=== PATIENT | female | born 1970 | race Hispanic/Latino ===

== ENCOUNTER 2019-10-31 10:19 | Emergency (ER) | payer MEDICARE, MEDICAID, SELFPAY ==
--- NOTE | ~2019-10-31 | XR_ITS ---
EXAMINATION: XR chest 2V DATE: 10/31/2019 11:12 INDICATION: Mid chest pain TECHNIQUE: PA and lateral views of the chest are obtained. COMPARISON: 03/27/2019 FINDINGS: There are minimal airspace opacities of the lung bases. There is no pleural effusion or pne umothorax. The heart size is normal. There are changes of cardiac valve surgery. A dual-lead cardiac pacemaker of the right chest wall ends with leads in expected locations. There is mild thoracic spond ylosis. IMPRESSION: 1. Minimal airspace opacities of the lung bases, consistent with atelectasis versus pneumonia versus pulmonary edema. Reviewed, dictated and finalized at location A. IMPRESSION: 1. Minimal airspace opacities of the lung bases, consistent with atelectasis ve rsus pneumonia versus pulmonary edema.
[2019-10-31 10:22] VITALS: BP 197/103; PULSE 105; RESP 20; TEMP 37.1; O2SAT 99
--- NOTE | 2019-10-31 10:22 | ECG_ITS ---
Measurements Intervals [place] Rate: 111 P: 45 FL: 241 QRS: -27 QRSD: 178 T: 123 QT: 422 QTc: 574 Interpretive Statements ATRIAL SENSE- ELECTRONIC VENTRICULAR PACEMAKER UNDERLYING SINUS TACHYCARDIA BASELINE WANDER- I, II, AVR, AVL, AVF, V5 NO FURTHER INTERPRETATION IS POSSIBLE ABNORMAL ECG Electronically Signed On 10-31-2019 16:40:26 CDT by Jaun Ricks D.O.
[2019-10-31 10:42] LABS: Basophils Absolute Auto 0.1 K/mm3 (0.0-0.1); Basophils Percent Auto 0.9 % (0.2-1.2); Eosinophils Absolute Auto 0.1 K/mm3 (0-0.3); Hemoglobin 16.4 g/dL (12.0-15.0); Immature Granulocyte Absolute 0.05 K/mm3 (0.00-0.031); Immature Granulocyte Percent A 0.5 % (0-0.5); Lymphocytes Absolute Auto 2.69 K/mm3 (0.9-3.2); Lymphocytes Percent Auto 25.4 % (18.3-44.2); Mean Corpuscular HGB Conc 33.5 g/dl (32-36); Mean Corpuscular Hemoglobin 30.4 pg (26-34); Mean Corpuscular Volume 90.9 fl (80-100); Monocytes Absolute Auto 0.7 K/mm3 (0.1-0.6); Monocytes Percent Auto 6.5 % (2.6-8.5); Neutrophils Percent Auto 65.7 % (45.5-73.1); Platelet Count Result 295 k/mm3 (150-375); Red Blood Count 5.39 M/mm3 (4.2-5.4); Red Cell Distribution Width 13.7 % (11.5-14.5); White Blood Count 10.6 K/mm3 (4.5-10.0)
[2019-10-31 10:52] LABS: INR 0.8; Prothrombin Time 11.2 Seconds (11.1-14.7)
[2019-10-31 10:53] LABS: Partial Thromboplastin Time 28.4 SECONDS (22.3-36.8)
[2019-10-31 10:56] LABS: Blood Urea Nitrogen 16 mg/dL (7-17); Calcium 9.3 mg/dL (8.4-10.2); Carbon Dioxide 19 mmol/L (22-30); Chloride 105 mmol/L (98-107); Estimated CRCL calculation 51 ml/min; Estimated Glomerular Filt Rate 53; Glucose 199 mg/dL (65-105); Potassium 3.8 mmol/L (3.4-5.0); Sodium 137 mmol/L (137-145)
[2019-10-31 11:08] LABS: Troponin I < 0.012 ng/mL (0.000-0.034)
--- NOTE | 2019-10-31 11:29 | ED.CHESTPAIN ---
HPI - Chest Pain General Chief Complaint: Chest Pain Stated Complaint: CHEST PAIN Time Seen by Provider: 10/31/19 10:30 History of Present Illness HPI narrative: Patient presents for 1 week of cough and 3 days of chest pain. She has had pig valve replacement 2 valves in her heart, and still has chest wall pain from the surgery. She continues to smoke and has had light brown sputum in the last week. She has had no documented fever but she has had shortness of breath chills and sweats. Her appetite is good she has had no vomiting she had a little bit of diarrhea in the last couple days. She says that the chest pain is a 4 out of 10 and radiates straight to the back. She also has known reflux. MD complaint: chest pain Onset (ago): day(s) Timing of current episode: constant Prior episodes: Yes Onset: during rest Related Data Home Medications Medication Instructions Recorded Confirmed albuterol sulfate [Ventolin HFA] 2 puff INHALATION QID PRN 10/31/19 amlodipine 10 mg PO DAILY 10/31/19 atorvastatin 20 mg PO DAILY 10/31/19 carvedilol 25 mg PO BID 10/31/19 clopidogrel 75 mg PO DAILY 10/31/19 fenofibrate nanocrystallized 145 mg PO DAILY 10/31/19 glimepiride 2 mg PO BID 10/31/19 lisinopril 40 mg PO DAILY 10/31/19 metformin 500 mg PO DAILY 10/31/19 omeprazole 40 mg PO BID 10/31/19 Allergies Allergy/AdvReac Type Severity Reaction Status Date / Time aspirin Allergy Severe N/V/D Verified 10/31/19 10:32 ketorolac Allergy Severe V/N/D Verified 10/31/19 10:32 morphine Allergy Severe N/V/D Verified 10/31/19 10:32 naproxen Allergy Intermediate N/V/D Verified 10/31/19 10:32 citalopram Allergy Unknown Unknown Verified 10/31/19 10:32 Iodine and Iodide Containing Allergy Unknown Unknown Verified 10/31/19 10:32 Produc tramadol Allergy Unknown Unknown Verified 10/31/19 10:32 polyethylene glycol AdvReac Intermediate NAUSEA Verified 10/31/19 10:32 polyethylene glycol 3350 AdvReac Intermediate NAUSEA Verified 10/31/19 10:32 potassium chloride AdvReac Intermediate NAUSEA Verified 10/31/19 10:32 sodium AdvReac Intermediate NAUSEA Verified 10/31/19 10:32 sodium bicarbonate AdvReac Intermediate NAUSEA Verified 10/31/19 10:32 sodium sulfate AdvReac Intermediate NAUSEA Verified 10/31/19 10:32 Contrast Media Allergy Intermediate SOB Uncoded 10/31/19 10:32 PROPOXYPHENE NAPSYLATE AdvReac Mild N/V Uncoded 10/31/19 10:32 Review of Systems Review of Systems: Narrative: CONSTITUTIONAL: Denies fever, but she has had chills, and sweats. EYES: Denies visual changes, redness, or discharge. ENT: Denies rhinorrhea, congestion, sore throat, or otalgia. CARDIOVASCULAR: Denies palpitations, or edema. RESPIRATORY: She has cough with sputum production, and shortness of breath.. GASTROINTESTINAL: Denies abdominal pain, nausea, vomiting GENITOURINARY: Denies dysuria or hematuria. SKIN: Denies rash or itching. MUSCULOSKELETAL: Denies back pain, joint pain, or myalgia. NEUROLOGIC: Denies headache, numbness, or weakness. PSYCHIATRIC: Denies anxiety or depression. All systems reviewed & are unremarkable except as noted in HPI and below PMFSH Past Medical History Medical History Endocarditis Surgical History Surgical History History of heart valve replacement Social History Social History (Updated 10/31/19 @ 11:34 by Maritza Galvan MD) Smoking status: Heavy tobacco smoker Alcohol intake: never Substance use: current Substance use type: marijuana Exam Narrative: Exam Narrative: GENERAL: Well-appearing, well-nourished, and in no acute distress. Smells strongly of cigarette smoke. HEAD: Normocephalic, atraumatic. EYES: PERRLA and EOMI. ENT: Nares clear, no rhinorrhea or epistaxis. Mucous membranes moist. NECK: Supple. CHEST: Clear to auscultation. No respiratory distress. Tenderness on the chest wall. HEART: Regular rate and rhythm.
[2019-10-31] MEDS: SODIUM CHLORIDE 0.9% IV 1,000 ML 999 ML IV CONT (11:47)
[2019-10-31] MEDS: FAMOTIDINE 20 MG/2 ML VIAL IV PUSH (11:48)
[2019-10-31] MEDS: BELLADONNA ALK/PHENOB ELIX 10 ML, MAG HYDROX/ALUMINUM HYD/SIMETH 30 ML, LIDOCAINE HCL 2... PO (11:48)
[2019-10-31 12:01] LABS: Lipase 203 U/L (23-300)
[2019-10-31 12:12] LABS: NT Pro B Type Natriuretic Pept 747 PG/ML (5-100)
[2019-10-31] MEDS: FUROSEMIDE INJ 40 MG/4 ML VIAL IV PUSH (12:45)
[2019-10-31 12:46] VITALS: BP 192/100; PULSE 75; RESP 20; O2SAT 97
[2019-10-31 13:28] VITALS: BP 187/90; PULSE 78; RESP 20; O2SAT 98
== END 2019-10-31 13:33 | disposition home or self-care (01) ==
PROVIDERS: Emergency Provider Emergency Medicine
DX: I50.9 Heart failure, unspecified (principal); J18.9 Pneumonia, unspecified organism; R07.89 Other chest pain; F17.200 Nicotine dependence, unspecified, uncomplicated; Z20.828 Contact with and (suspected) exposure to other viral communicable diseases; Z95.3 Presence of xenogenic heart valve
CPT/HCPCS: 36415; 71046; 80048; 83605; 83690; 83880; 84484; 85025; 85610; 85730; 87040; 87635; 87804; 93005; 96361; 96374; 96375; 99284; A9270; C9803; J1940; J7030; U0003

== ENCOUNTER 2020-05-30 13:10 | Emergency (ER) | payer MEDICARE, MEDICAID, SELFPAY ==
--- NOTE | ~2020-05-30 | CT_ITS ---
EXAMINATION: CT brain wo [facility] EXAM DATE: 05/30/2020 16:12 INDICATION: Left-sided hemiparesis. TECHNIQUE: Spiral CT of the head was performed without contrast. Axial, coronal and sagittal images were reviewed. The dose-length product (DLP) for this examination was 605.33 mGy-cm. The exposure w as tailored according to patient size, and iterative reconstruction (ASIR) was used as additional dos e reduction technique. There is no prior study for comparison. FINDINGS: There are bilateral basal ganglia, caudate head, thalamic lacunar infarctions which are old . There is no acute intraparenchymal hemorrhage. No evidence of intraparenchymal brain mass lesion. No evidence of acute infarction. Please note that initial head CT has limited sensitivity for small or acute infarctions. There is mild periventricular and subcortical hypodensity, nonspecific but pro bably related to small vessel ischemic disease. There is mild prominence of the sulci and ventricle s related to cerebral atrophy. There is intracranial carotid arteriosclerosis. There are no extra- axial collections. There is no mass effect or midline shift. The orbits are unremarkable. Soft tis howard is unremarkable. The visualized sinuses and mastoid air cells are well aerated. IMPRESSION: 1. Old bilateral lacunar infarctions. 2. Chronic age related findings. Reviewed, dictated and finalized at location A. S MILL OPERATOR
[2020-05-30 13:14] VITALS: BP 230/138; PULSE 106; RESP 17; TEMP 36.4; O2SAT 98
[2020-05-30 14:29] VITALS: BP 205/143; PULSE 88; RESP 18; O2SAT 97
--- NOTE | 2020-05-30 14:54 | ED.WEAKNESS ---
HPI - Weakness General Chief complaint: Extremity Injury, Upper Stated complaint: Muscle pain in left arm, weak left arm Time Seen by Provider: 05/30/20 13:24 Source: patient Mode of arrival: ambulatory Limitations: no limitations History of Present Illness HPI Narrative: 49-year-old female History of hypertension type 2 diabetes and heart surgery for what she describes as a hole but may have been a valve Note that her initial examination in the ED was delayed because she was apparently assigned to a non-ED provider and did not show up on anybodies list of patients waiting to be seen That said she is presenting complaining of pain in her left armpit for several days She does not report having ever injured herself She does note that the symptoms are a lot worse if she tries to reach behind her back to scratch it or anything like that Of greater concern is she says that yesterday she woke up with left leg weakness and when she tried to walk she fell down She apparently did not seek medical attention at that time due to Covid phobia Also she notes that she did not take any of her medicines today including her blood pressure medicine because she felt a little nauseated She does not report a headache and she does not report any chest pain Related Data Home Medications Medication Instructions Recorded Confirmed albuterol sulfate [Ventolin HFA] 2 puff INHALATION QID PRN 10/31/19 amlodipine 10 mg PO DAILY 10/31/19 atorvastatin 20 mg PO DAILY 10/31/19 carvedilol 25 mg PO BID 10/31/19 clopidogrel 75 mg PO DAILY 10/31/19 fenofibrate nanocrystallized 145 mg PO DAILY 10/31/19 glimepiride 2 mg PO BID 10/31/19 lisinopril 40 mg PO DAILY 10/31/19 metformin 500 mg PO DAILY 10/31/19 omeprazole 40 mg PO BID 10/31/19 dicyclomine 10 mg PO BID 05/30/20 05/30/20 Allergies Allergy/AdvReac Type Severity Reaction Status Date / Time aspirin Allergy Severe N/V/D Verified 05/30/20 13:17 ketorolac Allergy Severe V/N/D Verified 05/30/20 13:17 morphine Allergy Severe N/V/D Verified 05/30/20 13:17 naproxen Allergy Intermediate N/V/D Verified 05/30/20 13:17 citalopram Allergy Unknown Unknown Verified 05/30/20 13:17 Iodine and Iodide Containing Allergy Unknown Anaphylactic Verified 05/30/20 15:51 Produc Shock tramadol Allergy Unknown Unknown Verified 05/30/20 13:17 polyethylene glycol AdvReac Intermediate NAUSEA Verified 05/30/20 13:17 polyethylene glycol 3350 AdvReac Intermediate NAUSEA Verified 05/30/20 13:17 potassium chloride AdvReac Intermediate NAUSEA Verified 05/30/20 13:17 sodium AdvReac Intermediate NAUSEA Verified 05/30/20 13:17 sodium bicarbonate AdvReac Intermediate NAUSEA Verified 05/30/20 13:17 sodium sulfate AdvReac Intermediate NAUSEA Verified 05/30/20 13:17 Contrast Media Allergy Intermediate SOB Uncoded 10/31/19 10:32 PROPOXYPHENE NAPSYLATE AdvReac Mild N/V Uncoded 10/31/19 10:32 Review of Systems Constitutional: Constitutional: Denies chills, Reports fatigue, Denies fever(s) and Reports weakness Eyes: Eyes: Denies no additional eye complaints and Denies change in vision ENT: Denies dysphagia, Denies epistaxis and Denies sore throat Cardiovascular: Cardiovascular: Reports chest pain and Denies rapid heart rate Respiratory: Respiratory: Denies cough and Denies dyspnea Gastrointestinal: Gastrointestinal: Denies diarrhea and Denies vomiting Musculoskeletal: Musculoskeletal: Reports myalgias and Reports arthralgias Neurologic: Denies vertigo, Denies syncope, Reports focal weakness and Reports weakness PMFSH Past Medical History Medical History (Updated 05/30/20 @ 17:12 by William Pop MD) Endocarditis Surgical History Surgical History History of heart valve replacement Social History Social History (Updated 10/31/19 @ 11:34 by Maritza Galvan MD) Smoking status: Heavy tobacco smoker Alcohol intake: never Substance use: current Substance use ty
--- NOTE | 2020-05-30 15:03 | ECG_ITS ---
Measurements Intervals [place] Rate: 78 P: 59 [place]: 104 QRS: 47 QRSD: 142 T: 15 QT: 441 QTc: 503 Interpretive Statements SINUS RHYTHM WITH SHORT [place] INTERVAL POSSIBLE LEFT ATRIAL ENLARGEMENT RIGHT BUNDLE BRANCH BLOCK BASELINE ARTIFACT- I, II, III, AVR ABNORMAL ECG Electronically Signed On 05-30-2020 16:01:43 LINUX SYSTEM ENGINEER by Jaun Ricks D.O.
[2020-05-30] MEDS: amLODIPine BESYLATE 5 MG TABLET 10 MG PO (15:09)
[2020-05-30] MEDS: lisinopriL 20 MG TABLET PO (15:09)
[2020-05-30 15:27] VITALS: PULSE 86
[2020-05-30] MEDS: carvediloL 25 MG TABLET PO (15:27)
--- NOTE | 2020-05-30 15:29 | PC.NURSE ---
Patient declines being admitted to the hospital at this time.
[2020-05-30 15:47] VITALS: BP 171/134; PULSE 91; RESP 19; O2SAT 98
[2020-05-30 15:47] LABS: Glucose Point of Care 191 (65-105)
[2020-05-30 15:49] LABS: Basophils Absolute Auto 0.1 K/mm3 (0.0-0.1); Basophils Percent Auto 0.9 % (0.2-1.2); Eosinophils Absolute Auto 0.1 K/mm3 (0-0.3); Eosinophils Percent Auto 0.6 % (0-4.4); Hematocrit 49.8 % (37.0-47.0); Hemoglobin 16.8 g/dL (12.0-15.0); Immature Granulocyte Absolute 0.04 K/mm3 (0.00-0.031); Immature Granulocyte Percent A 0.4 % (0-0.5); Lymphocytes Absolute Auto 2.01 K/mm3 (0.9-3.2); Lymphocytes Percent Auto 19.8 % (18.3-44.2); Mean Corpuscular HGB Conc 33.7 g/dl (32-36); Mean Corpuscular Hemoglobin 30.7 pg (26-34); Mean Platelet Volume 8.6 fl (7.4-10.4); Monocytes Absolute Auto 0.6 K/mm3 (0.1-0.6); Monocytes Percent Auto 5.4 % (2.6-8.5); Neutrophils Absolute Auto 7.4 K/mm3 (1.3-6.7); Neutrophils Percent Auto 72.9 % (45.5-73.1); Platelet Count Result 265 k/mm3 (150-375); Red Blood Count 5.47 M/mm3 (4.2-5.4); Red Cell Distribution Width 13.9 % (11.5-14.5); White Blood Count 10.2 K/mm3 (4.5-10.0)
[2020-05-30] MEDS: ONDANSETRON INJ 4 MG/2 ML VIAL IV PUSH (15:50)
[2020-05-30 16:03] LABS: INR 0.9; Prothrombin Time 12.3 Seconds (11.1-14.7)
[2020-05-30 16:05] LABS: Alanine Aminotransferase 17 U/L (4-35); Albumin Level 4.5 g/dL (3.5-5.1); Alkaline Phosphatase 113 U/L (38-126); Anion Gap 10 mmol/L (8-16); Aspartate Amino Transferase 25 U/L (14-36); Bilirubin,Total 0.8 mg/dL (0.2-1.3); Blood Urea Nitrogen 17 mg/dL (7-17); Calcium 9.6 mg/dL (8.4-10.2); Carbon Dioxide 26 mmol/L (22-30); Chloride 103 mmol/L (98-107); Estimated CRCL calculation 50 ml/min; Estimated Glomerular Filt Rate 52; Glucose 183 mg/dL (65-105); Potassium 3.7 mmol/L (3.4-5.0); Sodium 139 mmol/L (137-145)
[2020-05-30] MEDS: ACETAMINOPHEN 500 MG TABLET 1000 MG PO (16:25)
[2020-05-30] MEDS: LABETALOL HCL INJ 100 MG/20 ML VIAL 20 MG IV PUSH (16:26)
[2020-05-30 17:25] VITALS: BP 226/106; PULSE 88; RESP 19; O2SAT 98
== END 2020-05-30 17:26 | disposition left against medical advice (07) ==
PROVIDERS: Emergency Provider Emergency Medicine
DX: I63.9 Cerebral infarction, unspecified (principal); I10 Essential (primary) hypertension; E11.9 Type 2 diabetes mellitus without complications; Z79.84 Long term (current) use of oral hypoglycemic drugs; Z95.2 Presence of prosthetic heart valve; F17.200 Nicotine dependence, unspecified, uncomplicated; I45.10 Unspecified right bundle-branch block; R94.31 Abnormal electrocardiogram [ECG] [EKG]
CPT/HCPCS: 36415; 70450; 80053; 82948; 85025; 85610; 93005; 96374; 96375; 99284; A9270; J2405

== ENCOUNTER 2021-09-14 10:38 | Emergency (ER) | payer OTHER, SELFPAY ==
--- NOTE | ~2021-09-14 | CT_ITS ---
EXAMINATION: CT abdomen pelvis wo con DATE: 09/14/2021 11:22 INDICATION: Flank pain TECHNIQUE: Computed tomography (CT) of the abdomen and pelvis was performed without intravenous contr ast. Automated exposure control and iterative reconstruction technique were employed. Exam dose: 204 .93 mGy-cm total exam DLP. COMPARISON: 03/09/2017 CT abdomen pelvis FINDINGS: Status post sternotomy and mitral valve replacement. Right atrial and right ventricular leads. Heart size is within normal limits. No pericardial or pleur al effusion. The lung bases are clear of infiltrate or consolidation. The liver, gallbladder, spleen, pancreas, bile ducts and pancreatic duct are unremarkable. Normal morphology of the adrenal glands. Multiple bilateral renal calculi measuring up to 5 mm on the right, 3 mm on the left. No ureteral khalif culus or hydroureteronephrosis. There is calcification but no aneurysm of the abdominal aorta and iliac and femoral arteries. No intr aperitoneal or retroperitoneal or pelvic mass lesion or adenopathy or ascites. Normal appendix. There are diverticula throughout the left and right colon; no CT evidence of diverti culitis. No bowel obstruction or intraperitoneal free air. The uterus, adnexal areas and urinary bladder are unremarkable. Included skeletal structures are unremarkable. IMPRESSION: Bilateral nonobstructive nephrolithiasis Extensive diverticulosis of left and right colon; no CT evidence of diverticulitis Status post mitral valve replacement Right atrial and ventricular pacemaker leads Reviewed, dictated and finalized at Location [facility]. Reviewed, dictated and finalized at location A. IMPRESSION: Bilateral nonobstructive nephrolithiasis Extensive diverticulosis of left and right colon; no CT evidence of diverticuli tis Status post mitral valve replacement Right atrial and ventricular pacemaker leads
[2021-09-14 11:09] VITALS: BP 172/85; PULSE 92; RESP 20; TEMP 36.7; O2SAT 99
--- NOTE | 2021-09-14 11:15 | PC.NURSE ---
Pt to CT scan at this time.
--- NOTE | 2021-09-14 11:15 | ED.BACK ---
HPI - Back Pain/Injury General Chief Complaint: Back Pain/Injury Stated Complaint: flank pain Time Seen by Provider: 09/14/21 11:04 History of Present Illness HPI Narrative: 50-year-old female presents the emergency room with chronic left flank pain for 4 to 5 months. Associated with nausea and vomiting. Patient also complaining of dysuria and decreased urine flow for 1 month. Patient states she has a history of kidney stones, in the past requiring lithotripsy. Patient denies fever denies abdominal pain. Related Data Home Medications Medication Instructions Recorded Confirmed albuterol sulfate [Ventolin HFA] 2 puff INHALATION QID PRN 10/31/19 amlodipine 10 mg PO DAILY 10/31/19 atorvastatin 20 mg PO DAILY 10/31/19 carvedilol 25 mg PO BID 10/31/19 clopidogrel 75 mg PO DAILY 10/31/19 fenofibrate nanocrystallized 145 mg PO DAILY 10/31/19 glimepiride 2 mg PO BID 10/31/19 lisinopril 40 mg PO DAILY 10/31/19 metformin 500 mg PO DAILY 10/31/19 omeprazole 40 mg PO BID 10/31/19 dicyclomine 10 mg PO BID 05/30/20 05/30/20 Allergies Allergy/AdvReac Type Severity Reaction Status Date / Time aspirin Allergy Severe N/V/D Verified 09/14/21 11:14 ketorolac Allergy Severe V/N/D Verified 09/14/21 11:14 morphine Allergy Severe N/V/D Verified 09/14/21 11:14 naproxen Allergy Intermediate N/V/D Verified 09/14/21 11:14 citalopram Allergy Unknown Unknown Verified 09/14/21 11:14 Iodine and Iodide Containing Allergy Unknown Anaphylactic Verified 09/14/21 11:14 Produc Shock tramadol Allergy Unknown Unknown Verified 09/14/21 11:14 polyethylene glycol AdvReac Intermediate NAUSEA Verified 05/30/20 13:17 polyethylene glycol 3350 AdvReac Intermediate NAUSEA Verified 09/14/21 11:14 potassium chloride AdvReac Intermediate NAUSEA Verified 09/14/21 11:14 sodium AdvReac Intermediate NAUSEA Verified 09/14/21 11:14 sodium bicarbonate AdvReac Intermediate NAUSEA Verified 09/14/21 11:14 sodium sulfate AdvReac Intermediate NAUSEA Verified 09/14/21 11:14 Contrast Media Allergy Intermediate SOB Uncoded 09/14/21 11:14 PROPOXYPHENE NAPSYLATE AdvReac Mild N/V Uncoded 09/14/21 11:14 Review of Systems Review of Systems: CONSTITUTIONAL: Denies fever, chills, or sweats. EYES: Denies visual changes, redness, or discharge. ENT: Denies rhinorrhea, congestion, sore throat, or otalgia. CARDIOVASCULAR: Denies chest pain, palpitations, or edema. RESPIRATORY: Denies cough or dyspnea. GASTROINTESTINAL: Reports bilateral flank pain, nausea GENITOURINARY: Reports dysuria SKIN: Denies rash or itching. MUSCULOSKELETAL: Denies back pain, joint pain, or myalgia. NEUROLOGIC: Denies headache, numbness, dizziness, or weakness. PSYCHIATRIC: Denies anxiety or depression. [facility] Past Medical History Medical History (Updated 09/14/21 @ 12:47 by Gibson Ponce APRN) Endocarditis Surgical History Surgical History History of heart valve replacement Social History Social History Smoking status: Heavy tobacco smoker Alcohol intake: never Substance use: current Substance use type: marijuana Gender identity (if verbalized by the patient): Female Exam Narrative: GENERAL: Well-appearing, well-nourished, and in no acute distress. HEAD: Normocephalic, atraumatic. EYES: PERRLA and EOMI. ENT: Nares clear, no rhinorrhea or epistaxis. Mucous membranes moist. CHEST: Clear to auscultation. No respiratory distress. No wheezes rales or rhonchi HEART: Regular rate and rhythm. No murmur heard. Normal peripheral pulses. ABDOMEN: Soft, nontender, nondistended, normal active bowel sounds. Bilateral CVA tenderness left greater than right, suprapubic tenderness EXTREMITIES: Normal range of motion. No edema. SKIN: Warm, dry, no rash. NEURO: No focal deficits. Alert and oriented x3. PSYCH: Normal mood and affect. Course Vital Signs Vital signs: Vital Signs Te
[2021-09-14] MEDS: SODIUM CHLORIDE 0.9% IV 1,000 ML 999 ML IV CONT (11:23)
[2021-09-14] MEDS: ONDANSETRON INJ 4 MG/2 ML VIAL IV PUSH (11:24)
[2021-09-14 11:26] LABS: Basophils Absolute Auto 0.1 K/mm3 (0.0-0.1); Basophils Percent Auto 0.8 % (0.2-1.2); Eosinophils Percent Auto 0.5 % (0-4.4); Hematocrit 45.2 % (37.0-47.0); Hemoglobin 14.5 g/dL (12.0-15.0); Immature Granulocyte Absolute 0.03 K/mm3 (0.00-0.031); Immature Granulocyte Percent A 0.4 % (0-0.5); Lymphocytes Absolute Auto 1.46 K/mm3 (0.9-3.2); Lymphocytes Percent Auto 17.3 % (18.3-44.2); Mean Corpuscular HGB Conc 32.1 g/dl (32-36); Mean Corpuscular Hemoglobin 29.4 pg (26-34); Mean Corpuscular Volume 91.5 fl (80-100); Mean Platelet Volume 8.8 fl (7.4-10.4); Monocytes Absolute Auto 0.5 K/mm3 (0.1-0.6); Neutrophils Absolute Auto 6.4 K/mm3 (1.3-6.7); Platelet Count Result 274 k/mm3 (150-375); Red Blood Count 4.94 M/mm3 (4.2-5.4); Red Cell Distribution Width 14.2 % (11.5-14.5); White Blood Count 8.5 K/mm3 (4.5-10.0)
[2021-09-14 11:31] LABS: Appearance Urine Clear (Clear); Bilirubin Urine Negative (Negative); Blood Urine Trace-lysed (Negative); Color Urine Yellow (Yellow); Glucose Urine UA Negative (Negative); Ketones Urine Negative (Negative); Leukocyte Esterase Ur Negative LEU/UL (Negative); Nitrate Urine Negative (Negative); Protein Urine 2+ mg/dL (Negative); Specific Grav Ur 1.025 (1.001-1.035); Urobilinogen Urine 0.2 mg/dL (<2.0)
[2021-09-14 11:32] LABS: Add Urine Microscopic? YES
[2021-09-14 11:35] LABS: Alanine Aminotransferase 20 U/L (4-35); Albumin Level 4.8 g/dL (3.5-5.1); Alkaline Phosphatase 93 U/L (38-126); Anion Gap 9 mmol/L (8-16); Aspartate Amino Transferase 28 U/L (14-36); Bilirubin,Total 0.6 mg/dL (0.2-1.3); Blood Urea Nitrogen 28 mg/dL (7-17); Calcium 9.2 mg/dL (8.4-10.2); Carbon Dioxide 22 mmol/L (22-30); Chloride 105 mmol/L (98-107); Estimated CRCL calculation 49 ml/min; Estimated Glomerular Filt Rate 52; Glucose 239 mg/dL (65-110); Lipase 685 U/L (23-300); Potassium 4.6 mmol/L (3.4-5.0); Sodium 136 mmol/L (137-145)
[2021-09-14 11:40] LABS: Mucus Urine Rare /lpf; Squamous Epithelial Cell Urine Rare /hpf (Few); WBC Urine 0-3 /hpf
[2021-09-14 12:38] LABS: Hemoglobin A1C 7.5 % (<5.7)
[2021-09-14 13:00] VITALS: BP 173/80; PULSE 93; RESP 20; O2SAT 99
== END 2021-09-14 13:01 | disposition home or self-care (01) ==
PROVIDERS: Emergency Medicine; Emergency Provider Nurse Practitioner Family
DX: N28.9 Disorder of kidney and ureter, unspecified (principal); E11.65 Type 2 diabetes mellitus with hyperglycemia; M54.50 Low back pain, unspecified; I38 Endocarditis, valve unspecified; K57.90 Diverticulosis of intestine, part unspecified, without perforation or abscess without bleeding; N20.0 Calculus of kidney; Z95.0 Presence of cardiac pacemaker; Z95.2 Presence of prosthetic heart valve; F17.200 Nicotine dependence, unspecified, uncomplicated; Z87.442 Personal history of urinary calculi; Z79.84 Long term (current) use of oral hypoglycemic drugs
CPT/HCPCS: 36415; 74176; 80053; 81001; 83036; 83690; 85025; 96361; 96374; 99284; J2405; J7030

== ENCOUNTER 2022-08-27 11:41 | Outpatient (CLI) | payer MEDICARE, MEDICAID, SELFPAY ==
--- NOTE | ~2022-08-27 | US_ITS ---
EXAMINATION: US renal BI DATE: 08/27/2022 12:40 INDICATION: N18.31 - Chronic kidney disease, stage 3a TECHNIQUE: Multiple grayscale and Doppler ultrasound images of the kidneys were obtained. COMPARISON: CT abdomen pelvis 09/14/2021 FINDINGS: The right kidney measures 10.3 x 3.9 x 4.4 cm. The left kidney measures 9.6 x 4.3 x 3.6 cm. The kidne ys demonstrate normal parenchymal echogenicity. Multiple bilateral echogenic shadowing foci in the ki dneys measuring 9 mm on the right and 7 mm on the left. There is no hydronephrosis. The bladder is no rmal. IMPRESSION: Bilateral nephrolithiasis, otherwise unremarkable renal sonogram findings. Reviewed, dictated and finalized at location K.
[2022-08-27 13:58] LABS: Creatinine Urine 15.3 mg/dL; Total Protein Urine Random 58 mg/dL; Ur Ttl Prot Creatinine Ratio 3.79 mg/mg (0-0.20)
[2022-08-27 14:05] LABS: Albumin Level 4.9 g/dL (3.5-5.1); Anion Gap 7 mmol/L (8-16); Blood Urea Nitrogen 18 mg/dL (7-17); Calcium 9.3 mg/dL (8.4-10.2); Carbon Dioxide 26 mmol/L (22-30); Chloride 104 mmol/L (98-107); Estimated Glomerular Filt Rate 52; Glucose 111 mg/dL (65-110); Phosphorus 4.1 mg/dL (2.5-4.5); Potassium 4.2 mmol/L (3.4-5.0); Sodium 137 mmol/L (137-145)
[2022-08-27 14:20] LABS: Complement C3 134 mg/dL (88-165)
[2022-08-27 14:23] LABS: Eosinophil Urine None Seen % (None Seen); Urine Eos QC 2nd Tech Confirmed
[2022-08-29 20:20] LABS: ANCA Screen Negative (Negative); Anti Glomerular Basement Memb <1.0 AI (<1.0)
[2022-08-30 12:42] LABS: Albumin 4.5 g/dL (3.8-4.8); Alpha 1 Globulin 0.4 g/dL (0.2-0.3); Alpha 2 Globulin 1.1 g/dL (0.5-0.9); Beta 1 Globulin 0.5 g/dL (0.4-0.6); Gamma Globulin 0.8 g/dL (0.8-1.7); Protein, Total 7.6 g/dL (6.1-8.1)
[2022-08-30 14:07] LABS: Anti Nuclear Antibody Pattern Nuclear, Speckled; Anti Nuclear Antibody Titer 1:40 (Negative)
[2022-09-05 08:29] LABS: Creatinine, Random Urine 18 mg/dL (20-275); Total Protein/Creatinine Ratio 2833 mg/g creat (24-184)
== END 2022-08-27 11:42 | disposition home or self-care (01) ==
PROVIDERS: Visit Provider Internal Medicine Nephrology
DX: N18.31 Chronic kidney disease, stage 3a (principal); N20.0 Calculus of kidney
CPT/HCPCS: 36415; 76775; 80069; 82570; 83520; 84155; 84156; 84165; 84166; 85999; 86036; 86038; 86039; 86160; 86225

== ENCOUNTER 2022-12-14 11:27 | Outpatient (CLI) | payer MEDICARE, MEDICAID, SELFPAY ==
[2022-12-14 12:15] LABS: Albumin Level 4.1 g/dL (3.5-5.1); Anion Gap 6 mmol/L (8-16); Blood Urea Nitrogen 20 mg/dL (7-17); Calcium 8.7 mg/dL (8.4-10.2); Carbon Dioxide 28 mmol/L (22-30); Chloride 107 mmol/L (98-107); Estimated Glomerular Filt Rate 28; Glucose 178 mg/dL (65-110); Phosphorus 3.8 mg/dL (2.5-4.5); Potassium 4.3 mmol/L (3.4-5.0); Sodium 141 mmol/L (137-145)
[2022-12-14 12:17] LABS: Creatinine Urine 151.1 mg/dL
[2022-12-14 12:18] LABS: Total Protein Urine Random > 200 mg/dL
== END 2022-12-14 11:28 | disposition home or self-care (01) ==
PROVIDERS: Visit Provider Internal Medicine Nephrology
DX: E11.22 Type 2 diabetes mellitus with diabetic chronic kidney disease (principal); N18.31 Chronic kidney disease, stage 3a; I12.9 Hypertensive chronic kidney disease with stage 1 through stage 4 chronic kidney disease, or unspecified chronic kidney disease
CPT/HCPCS: 36415; 80069; 82570; 84156

== ENCOUNTER 2023-03-18 11:35 | Emergency (ER) | payer MEDICARE, MEDICAID, SELFPAY ==
[2023-03-18 11:54] VITALS: BP 133/87; PULSE 78; RESP 16; TEMP 37.2; O2SAT 99
--- NOTE | 2023-03-18 14:02 | PC.NURSE ---
patient left without seeing a provider.
== END 2023-03-18 14:02 | disposition left against medical advice (07) ==
LOC: ANHED 14:08
DX: R10.9 Unspecified abdominal pain (principal)
CPT/HCPCS: 99199

== ENCOUNTER 2023-08-05 10:23 | Outpatient (CLI) | payer MEDICARE, MEDICAID, SELFPAY ==
[2023-08-05 11:11] LABS: Anion Gap 5 mmol/L (8-16); Blood Urea Nitrogen 21 mg/dL (7-17); Calcium 8.7 mg/dL (8.4-10.2); Carbon Dioxide 27 mmol/L (22-30); Chloride 104 mmol/L (98-107); Estimated Glomerular Filt Rate 47; Glucose 167 mg/dL (65-110); Phosphorus 4.7 mg/dL (2.5-4.5); Potassium 3.6 mmol/L (3.4-5.0); Sodium 136 mmol/L (137-145)
[2023-08-05 11:22] LABS: Parathyroid Intact 110.2 pg/mL (7.5-53.5)
[2023-08-05 11:45] LABS: Creatinine Urine 51.6 mg/dL
[2023-08-05 11:50] LABS: Vitamin D 25 Hydroxy 17.1 ng/mL
[2023-08-05 12:21] LABS: Total Protein Urine Random 398 mg/dL; Ur Ttl Prot Creatinine Ratio 7.71 mg/mg (0-0.20)
== END 2023-08-05 10:24 | disposition home or self-care (01) ==
PROVIDERS: PCP Emergency Medicine; Visit Provider Internal Medicine Nephrology
DX: E11.22 Type 2 diabetes mellitus with diabetic chronic kidney disease (principal); I12.9 Hypertensive chronic kidney disease with stage 1 through stage 4 chronic kidney disease, or unspecified chronic kidney disease; N18.31 Chronic kidney disease, stage 3a; E55.9 Vitamin D deficiency, unspecified; N20.0 Calculus of kidney; N25.81 Secondary hyperparathyroidism of renal origin
CPT/HCPCS: 36415; 80069; 82306; 82570; 83970; 84156

== ENCOUNTER 2024-03-20 13:14 | Emergency (ER) | payer MEDICARE, MEDICAID, SELFPAY ==
--- NOTE | ~2024-03-20 | XR_ITS ---
XR chest 2V 03/20/2024 14:43 Indication: Shortness of breath. Bilateral leg swelling. Procedure: PA and lateral views of the chest Comparison: Comparison to multiple prior studies sequentially, with oldest reviewed study dated 08/2015. Findings: Status post median sternotomy for CABG. Pacemaker leads in expected position. Cardiomegaly. There is mild interstitial edema. Small left pleural effusion. Left basilar atelectasis. Impression: 1: Cardiomegaly with mild interstitial edema. 2: Small left pleural effusion. Reviewed, dictated and finalized at location B. Impression: 1: Cardiomegaly with mild interstitial edema. 2: Small left pleural effusion.
[2024-03-20 13:21] VITALS: BP 198/102; PULSE 95; RESP 18; TEMP 36.4; O2SAT 98
--- NOTE | 2024-03-20 13:27 | ECG_ITS ---
Test Date: 2024-03-20 13:30:01 Measurements Intervals [place] Rate: 96 P: 22 MT: 191 QRS: -33 QRSD: 174 T: 121 QT: 438 QTc: 554 Interpretive Statements ELECTRONIC VENTRICULAR PACEMAKER ABNORMAL RHYTHM ECG No previous ECG available for comparison Electronically Signed On 03-20-2024 13:59:12 CDT by Robert Chapman M.D.
[2024-03-20 13:42] LABS: Basophils Absolute Auto 0.1 K/mm3 (0.0-0.1); Basophils Percent Auto 0.8 % (0.2-1.2); Eosinophils Percent Auto 0.4 % (0-4.4); Hematocrit 50.6 % (37.0-47.0); Immature Granulocyte Absolute 0.02 K/mm3 (0.00-0.031); Immature Granulocyte Percent A 0.3 % (0-0.5); Lymphocytes Absolute Auto 1.17 K/mm3 (0.9-3.2); Lymphocytes Percent Auto 15.5 % (18.3-44.2); Mean Corpuscular HGB Conc 31.6 g/dl (32-36); Mean Corpuscular Hemoglobin 29.1 pg (26-34); Monocytes Absolute Auto 0.5 K/mm3 (0.1-0.6); Monocytes Percent Auto 6.1 % (2.6-8.5); Neutrophils Absolute Auto 5.8 K/mm3 (1.3-6.7); Neutrophils Percent Auto 76.9 % (45.5-73.1); Platelet Count Result 153 k/mm3 (150-375); Red Cell Distribution Width 16.9 % (11.5-14.5); White Blood Count 7.6 K/mm3 (4.5-10.0)
[2024-03-20 13:53] LABS: Alanine Aminotransferase 12 U/L (6-35); Albumin Level 3.8 g/dL (3.5-5.1); Alkaline Phosphatase 202 U/L (38-126); Anion Gap 9 mmol/L (4-12); Aspartate Amino Transferase 28 U/L (14-36); Bilirubin,Total 1.8 mg/dL (0.2-1.3); Blood Urea Nitrogen 14 mg/dL (7-17); Calcium 8.6 mg/dL (8.4-10.2); Carbon Dioxide 26 mmol/L (22-30); Chloride 106 mmol/L (98-107); Estimated CRCL calculation 30 ml/min; Estimated Glomerular Filt Rate 29; Glucose 147 mg/dL (65-110); Potassium 3.4 mmol/L (3.4-5.0); Sodium 141 mmol/L (137-145)
[2024-03-20 14:04] LABS: Partial Thromboplastin Time 27.8 Seconds (22.3-36.8); Prothrombin Time 13.8 Seconds (11.1-14.7)
[2024-03-20 14:21] LABS: Troponin I 0.134 ng/mL (0.000-0.034)
[2024-03-20 14:48] VITALS: BP 198/105; PULSE 94; RESP 23; O2SAT 98; O2SAT 99
[2024-03-20 14:56] VITALS: PULSE 88
--- NOTE | 2024-03-20 15:11 | ED.EXTPRO ---
HPI - Extremity Problem General Chief complaint: Extremity Problem,Nontraumatic Stated complaint: bilateral leg swelling Time Seen by Provider: 03/20/24 14:45 Source: patient History of Present Illness HPI Narrative: 53 years old white female came to the ED by private car complaining of shortness of breath on exertion for the last 4-6 weeks, gradually getting worse. Left leg pain, sharp stabbing pain of the foot, ankle and leg. Plus slightly swollen. Patient is telling me that she does not take her medication on time she forgets most of the time because her boyfriend have a stroke and she is taking care of him. She denies any fever, chills, nausea, vomiting, chest pain, back pain or abdominal pain. History of diabetes, chronic kidney disease stage 3, open heart surgery, pacemaker, hypertension, allergy to aspirin, tobacco dependent, COPD,, Related Data Home Medications Medication Instructions Recorded Confirmed albuterol sulfate 90 mcg/actuation 2 puff inhalation QID PRN Dyspnea 10/31/19 09/18/23 aerosol inhaler (Ventolin HFA) amlodipine 10 mg tablet 10 mg PO DAILY 10/31/19 09/18/23 atorvastatin 10 mg tablet 20 mg PO DAILY 10/31/19 09/18/23 carvedilol 25 mg tablet 25 mg PO BID 10/31/19 09/18/23 clopidogrel 75 mg tablet 75 mg PO DAILY 10/31/19 09/18/23 fenofibrate nanocrystallized 145 145 mg PO DAILY 10/31/19 09/18/23 mg tablet glimepiride 2 mg tablet 2 mg PO BID 10/31/19 09/18/23 lisinopril 40 mg tablet 40 mg PO DAILY 10/31/19 09/18/23 metformin 500 mg tablet,extended 500 mg PO DAILY 10/31/19 09/18/23 release 24hr (osmotic) omeprazole 40 mg capsule,delayed 40 mg PO BID 10/31/19 09/18/23 release dicyclomine 10 mg capsule 10 mg PO BID 05/30/20 09/18/23 Allergies Allergy/AdvReac Type Severity Reaction Status Date / Time aspirin Allergy Severe N/V/D Verified 03/20/24 14:56 ketorolac Allergy Severe V/N/D Verified 03/20/24 14:56 morphine Allergy Severe N/V/D Verified 03/20/24 14:56 naproxen Allergy Intermediate N/V/D Verified 03/20/24 14:56 citalopram Allergy Unknown Unknown Verified 03/20/24 14:56 Iodine and Iodide Containing Allergy Unknown Anaphylactic Verified 03/20/24 14:56 Produc Shock tramadol Allergy Unknown Unknown Verified 03/20/24 14:56 polyethylene glycol AdvReac Intermediate NAUSEA Verified 03/20/24 14:56 polyethylene glycol 3350 AdvReac Intermediate NAUSEA Verified 03/20/24 14:56 potassium chloride AdvReac Intermediate NAUSEA Verified 03/20/24 14:56 sodium AdvReac Intermediate NAUSEA Verified 03/20/24 14:56 sodium bicarbonate AdvReac Intermediate NAUSEA Verified 03/20/24 14:56 sodium sulfate AdvReac Intermediate NAUSEA Verified 03/20/24 14:56 Contrast Media Allergy Intermediate SOB Uncoded 03/20/24 14:56 PROPOXYPHENE NAPSYLATE AdvReac Mild N/V Uncoded 03/20/24 14:56 Review of Systems Review of Systems: All systems reviewed & are unremarkable except as noted in HPI and below PMFSH Past Medical History Medical History COPD (chronic obstructive pulmonary disease) Diabetes mellitus type 2 in nonobese Dyslipidemia Endocarditis Essential hypertension Foot drop, right Hyperlipidemia Nephrolithiasis Pacemaker Urticaria Vitamin D deficiency, unspecified Surgical History Surgical History History of heart valve replacement Hx of CABG Social History Social History Smoking status: Heavy tobacco smoker Alcohol intake: never Substance use: current Substance use type: marijuana Do You Feel Safe in your Home?: Yes Lack of Transportation: YES Lack of Food: Sometimes True Current Housing: I Have Housing Concerned About Future Housing: No Difficulty Paying Gas/Electric Bills: No Difficulty Paying for Meds: No Currently Unemployed: No Education: High School Diploma/GED Difficulty w/ Childcare or Family Care: No Gender identity (if
[2024-03-20 16:15] VITALS: BP 193/95; PULSE 94; RESP 23; O2SAT 97
--- NOTE | 2024-03-20 16:21 | ECG_ITS ---
Test Date: 2024-03-20 16:32:54 Measurements Intervals [place] Rate: 92 P: 35 [place]: 185 QRS: -47 QRSD: 178 T: 117 QT: 436 QTc: 542 Interpretive Statements ELECTRONIC VENTRICULAR PACEMAKER ABNORMAL RHYTHM ECG Compared to ECG 03/20/2024 13:30:01 No significant changes Electronically Signed On 03-21-2024 16:14:20 CDT by Lyly Choi M.D.
[2024-03-20] MEDS: HYDROmorphone HCL INJ (*CRX) 1 MG/ML SYR 0.5 MG IV PUSH (16:42)
[2024-03-20] MEDS: FUROSEMIDE INJ 100 MG/10 ML VIAL 80 MG IV PUSH (16:45)
[2024-03-20 16:48] VITALS: BP 205/112; PULSE 98; RESP 18; O2SAT 97
[2024-03-20] MEDS: hydrALAZINE HCL 20 MG/ML VIAL IV PUSH (16:48)
[2024-03-20 17:24] LABS: NT Pro B Type Natriuretic Pept 19100 pg/mL (19.9-100); Troponin I 0.123 ng/mL (0.000-0.034)
[2024-03-20 17:38] VITALS: BP 181/88; PULSE 102; RESP 22; TEMP 36.6; O2SAT 98
== END 2024-03-20 17:46 | disposition left against medical advice (07) ==
PROVIDERS: Preventive Medicine Aerospace Medicine; Emergency Provider Emergency Medicine; PCP Emergency Medicine
DX: I21.4 Non-ST elevation (NSTEMI) myocardial infarction (principal); N17.9 Acute kidney failure, unspecified; I13.0 Hypertensive heart and chronic kidney disease with heart failure and stage 1 through stage 4 chronic kidney disease, or unspecified chronic kidney disease; I50.9 Heart failure, unspecified; Z91.148 Patient's other noncompliance with medication regimen for other reason; N18.30 Chronic kidney disease, stage 3 unspecified; E11.22 Type 2 diabetes mellitus with diabetic chronic kidney disease; J44.9 Chronic obstructive pulmonary disease, unspecified; E78.5 Hyperlipidemia, unspecified; E55.9 Vitamin D deficiency, unspecified; Z95.0 Presence of cardiac pacemaker; Z95.1 Presence of aortocoronary bypass graft; Z95.2 Presence of prosthetic heart valve; Z87.442 Personal history of urinary calculi; F17.200 Nicotine dependence, unspecified, uncomplicated; Z79.02 Long term (current) use of antithrombotics/antiplatelets; Z79.84 Long term (current) use of oral hypoglycemic drugs; Z79.899 Other long term (current) drug therapy; I51.7 Cardiomegaly; J90 Pleural effusion, not elsewhere classified
CPT/HCPCS: 36415; 71046; 80053; 83880; 84484; 85025; 85610; 85730; 93005; 96374; 96375; 99284; J0360; J1171; J1940

== ENCOUNTER 2024-06-12 10:14 | Outpatient (CLI) | payer MEDICARE, MEDICAID, SELFPAY ==
[2024-06-12 11:07] LABS: Albumin Level 4.4 g/dL (3.5-5.1); Anion Gap 5 mmol/L (4-12); Blood Urea Nitrogen 33 mg/dL (7-17); Carbon Dioxide 23 mmol/L (22-30); Chloride 107 mmol/L (98-107); Creatinine Urine 94.2 mg/dL; Estimated Glomerular Filt Rate 33; Glucose 138 mg/dL (65-110); Phosphorus 4.3 mg/dL (2.5-4.5); Potassium 4.8 mmol/L (3.4-5.0); Sodium 135 mmol/L (137-145)
[2024-06-12 11:34] LABS: Total Protein Urine Random 302 mg/dL; Ur Ttl Prot Creatinine Ratio 3.21 mg/mg (0-0.20)
[2024-06-12 11:43] LABS: Vitamin D 25 Hydroxy 25.6 ng/mL
== END 2024-06-12 10:15 | disposition home or self-care (01) ==
LOC: ANHLAB 10:17
PROVIDERS: PCP Emergency Medicine; Visit Provider Internal Medicine Nephrology
DX: E11.22 Type 2 diabetes mellitus with diabetic chronic kidney disease (principal); I12.9 Hypertensive chronic kidney disease with stage 1 through stage 4 chronic kidney disease, or unspecified chronic kidney disease; N20.0 Calculus of kidney; N18.31 Chronic kidney disease, stage 3a; E55.9 Vitamin D deficiency, unspecified
CPT/HCPCS: 36415; 80069; 82306; 82570; 84156

== ENCOUNTER 2025-02-10 10:37 | Outpatient (CLI) | payer MEDICARE, MEDICAID, SELFPAY ==
[2025-02-10 11:52] LABS: Albumin Level 4.1 g/dL (3.5-5.1); Anion Gap 10 mmol/L (4-12); Blood Urea Nitrogen 18 mg/dL (7-17); Calcium 8.9 mg/dL (8.4-10.2); Carbon Dioxide 22 mmol/L (22-30); Chloride 106 mmol/L (98-107); Estimated Glomerular Filt Rate 30; Glucose 177 mg/dL (65-110); Potassium 4.0 mmol/L (3.4-5.0); Sodium 138 mmol/L (137-145)
[2025-02-10 12:05] LABS: Parathyroid Intact 98.6 pg/mL (14.5-75.2)
[2025-02-10 12:09] LABS: Total Protein Urine Random > 600 mg/dL; Ur Ttl Prot Creatinine Ratio > 4.35 mg/mg (0-0.20)
== END 2025-02-10 10:38 | disposition home or self-care (01) ==
PROVIDERS: Visit Provider Internal Medicine Nephrology
DX: N25.81 Secondary hyperparathyroidism of renal origin (principal); I12.9 Hypertensive chronic kidney disease with stage 1 through stage 4 chronic kidney disease, or unspecified chronic kidney disease; N18.32 Chronic kidney disease, stage 3b; E11.22 Type 2 diabetes mellitus with diabetic chronic kidney disease; N20.0 Calculus of kidney; E55.9 Vitamin D deficiency, unspecified
CPT/HCPCS: 36415; 80069; 82306; 82570; 83970; 84156